=== PATIENT | male | born 1995 | race Caucasian/White ===

== ENCOUNTER 2019-02-27 11:24 | Emergency (ER) | payer OTHER ==
[~2019-02-27] VITALS: Ht 180.3 cm; Wt 99.8 kg
[2019-02-27] MEDS ORDERED: KETO10TA2 PO (14:38)
[2019-02-27] MEDS ORDERED: NORFLEX100MG PO (14:38)
== END 2019-02-27 15:01 | disposition home or self-care (01) ==
LOC: ER 11:24
DX: M54.5 Low back pain (principal)

== ENCOUNTER 2019-07-26 14:38 | Emergency (ER) | payer OTHER ==
[~2019-07-26] VITALS: Ht 175.3 cm; Wt 101.2 kg
[~2019-07-26 14:38] MED LIST: KETO10TA2 PO; NORFLEX100MG PO
[2019-07-26] MEDS ORDERED: DICLOFENAC SODI75 MG PO (15:43)
== END 2019-07-26 16:00 | disposition home or self-care (01) ==
LOC: ER 14:38
DX: M54.5 Low back pain (principal)

== ENCOUNTER 2020-06-14 09:35 | Emergency (ER) | payer OTHER ==
[~2020-06-14] VITALS: Ht 175.3 cm; Wt 106.6 kg
[~2020-06-14 09:35] MED LIST changes: +DICLOFENAC SODI75 MG PO
== END 2020-06-14 13:19 | disposition home or self-care (01) ==
LOC: ER 09:35
DX: S90.32XA Contusion of left foot, initial encounter (principal); W22.8XXA Striking against or struck by other objects, initial encounter; Y93.89 Activity, other specified; Y92.89 Other specified places as the place of occurrence of the external cause; Y99.8 Other external cause status

== ENCOUNTER → 2022-12-12 | Emergency (ER) | payer OTHER ==
[~2022-12-12] VITALS: Ht 170.2 cm; Wt 95.3 kg
== END | disposition left against medical advice (07) ==
LOC: ER 20:55
DX: Z53.21 Procedure and treatment not carried out due to patient leaving prior to being seen by health care provider (principal)